=== PATIENT | female | born 2000 | race Caucasian/White ===

== ENCOUNTER 2021-07-18 23:05 | Observation (INO) | payer OTHER ==
[2021-07-18] MEDS ORDERED: Magnesium 2 GM/50 ML BAG (IN WATER) ONE (23:20)
[2021-07-18] MEDS ORDERED: Albuterol Sulfate 2.5 mg/0.5 ml Neb ONE (23:22)
[2021-07-18] MEDS ORDERED: Dexamethasone 10 MG/ML VIAL ONE (23:27)
[2021-07-18 23:35] LABS: #Neutrophils 4.6 10x3/uL (1.5-8.4); %Basophils 0.2 % (0.0-2.0); %Lymphocytes 32.6 % (18.0-47.0); %Monocytes 12.2 % (0.0-10.0); %Neutrophils 53.8 % (40.0-75.0); Hemoglobin 12.2 g/dL (12.0-15.5); Mean Corpuscular Hemoglobin 29.3 pg (27.0-33.0); Mean Corpuscular Volume 88.9 fl (81.6-98.3); Mean Platelet Volume 9.9 fl (7.4-10.4); Platelet Count 321 10x3/uL (150-450); Red Blood Cell (RBC) Count 4.16 10x6/uL (3.90-5.03); White Blood Cell (WBC) Count 8.5 10x3/uL (3.5-10.5)
[2021-07-18 23:49] LABS: ALT (SGPT) 20 U/L (8-55); AST (SGOT) 18 U/L (5-34); Albumin 3.7 g/dL (3.5-5.0); Alkaline Phosphatase 39 U/L (40-110); Anion Gap 11 mmol/L (10-20); BUN (Urea Nitrogen) 13 mg/dL (7.0-18.7); Bilirubin, Total 0.2 mg/dL (0.2-1.2); Calc. Creatinine Clearance 0 mL/min (70-130); Calcium 8.3 mg/dL (7.8-10.44); Carbon Dioxide 19 mmol/L (22-29); Chloride 110 mmol/L (98-107); Globulin 2.4 g/dL (2.4-3.5); Glucose 91 mg/dL (70-105); Magnesium 4.7 mg/dL (1.6-2.6); Potassium 3.2 mmol/L (3.5-5.1); Protein, Total 6.1 g/dL (6.0-8.3); Sodium 137 mmol/L (136-145)
[2021-07-19] MEDS ORDERED: Ondansetron PF 4 MG/2 ML Vial ONE ×2 (00:13→00:17)
[2021-07-19] MEDS ORDERED: Magnesium 2 GM/50 ML BAG (IN WATER) ONE (00:49)
[2021-07-19] MEDS ORDERED: Ketamine 50 MG/ML (10ML VIAL) ONE (01:10)
[2021-07-19] MEDS ORDERED: Guaifenesin DM 100-10/5 ML UDCUP PO PRN (01:22)
[2021-07-19] MEDS ORDERED: Calcium Carbonate 500 MG ChewTAB PO PRN (01:22)
[2021-07-19] MEDS ORDERED: Senokot S 8.6-50 MG TAB PO PRN (01:22)
[2021-07-19] MEDS ORDERED: Ondansetron PF 4 MG/2 ML Vial IVP PRN (01:22)
[2021-07-19] MEDS ORDERED: Zolpidem Tartrate 5 MG TAB PO PRN (01:22)
[2021-07-19] MEDS ORDERED: Acetaminophen 325 MG TAB PO PRN (01:22)
[2021-07-19 01:58] LABS: SARS-CoV-2 NAA Rapid Test Not Detected (NotDetected)
[2021-07-19 03:49] VITALS: BMI 19.5
[2021-07-19] MEDS ORDERED: Potassium Chloride 20 MEQ TAB PO SCH (05:30)
[2021-07-19] MEDS ORDERED: methylPREDNISolone Sod Succ/PF 125 MG/2 ML VIAL IVP SCH (06:00)
[2021-07-19] MEDS ORDERED: Mometasone/Formoterol 200/5 60 PUFF INH SCH ×3 (06:30→18:30)
[2021-07-19] MEDS ORDERED: Famotidine 20 MG TAB PO SCH (09:00)
[2021-07-19] MEDS ORDERED: Loratadine 10 MG TAB PO SCH (09:00)
[2021-07-19] MEDS ORDERED: Enoxaparin Sodium 40 MG/0.4 ML SYRINGE SC SCH (09:00)
[2021-07-19 10:23] LABS: Anion Gap 15 mmol/L (10-20); BUN (Urea Nitrogen) 7 mg/dL (7.0-18.7); Calc. Creatinine Clearance 91 mL/min (70-130); Calcium 8.8 mg/dL (7.8-10.44); Carbon Dioxide 18 mmol/L (22-29); Chloride 109 mmol/L (98-107); Glucose 164 mg/dL (70-105); Potassium 4.3 mmol/L (3.5-5.1); Sodium 138 mmol/L (136-145)
[2021-07-19 12:25] VITALS: BP 109/62; TEMP 97.4
== END 2021-07-19 14:30 | disposition home or self-care (01) ==
LOC: CSHERS 23:05 → CSHTELE 07-19 02:48
PROVIDERS: ADMIT Student in an Organized Health Care Education/Training Program; ATTEND Emergency Medicine
DX: J45.901 Unspecified asthma with (acute) exacerbation (principal); R65.10 Systemic inflammatory response syndrome (SIRS) of non-infectious origin without acute organ dysfunction; E87.6 Hypokalemia; Z20.822 Contact with and (suspected) exposure to COVID-19
CPT/HCPCS: 36415; 71045; 80048; 80053; 83735; 85025; 94640; 94644; 96365; 96367; 96372; 96375; 96376; G0378; J1100; J1650; J2405; J2930; J3475; J7611; J7620

== ENCOUNTER 2021-08-08 22:38 | Emergency (ER) | payer OTHER ==
[2021-08-08] MEDS ORDERED: methylPREDNISolone Sod Succ/PF 125 MG/2 ML VIAL ONE (22:57)
[2021-08-08] MEDS ORDERED: Magnesium 2 GM/50 ML BAG (IN WATER) ONE (22:58)
[2021-08-09 00:20] LABS: #Monocytes 1.1 10x3/uL (0.0-1.1); %Basophils 0.2 % (0.0-2.0); %Lymphocytes 18.6 % (18.0-47.0); %Monocytes 6.8 % (0.0-10.0); %Neutrophils 73.7 % (40.0-75.0); Hemoglobin 13.1 g/dL (12.0-15.5); Mean Corpuscular HGB CONC 33.3 g/dL (32.0-36.0); Mean Corpuscular Hemoglobin 29.3 pg (27.0-33.0); Mean Corpuscular Volume 87.9 fl (81.6-98.3); Mean Platelet Volume 10.5 fl (7.4-10.4); Platelet Count 382 10x3/uL (150-450); RBC Distribution Width 12.5 % (11.5-14.5); Red Blood Cell (RBC) Count 4.47 10x6/uL (3.90-5.03); White Blood Cell (WBC) Count 16.3 10x3/uL (3.5-10.5)
[2021-08-09 00:30] LABS: ALT (SGPT) 24 U/L (8-55); AST (SGOT) 19 U/L (5-34); Alkaline Phosphatase 39 U/L (40-110); Anion Gap 15 mmol/L (10-20); BUN (Urea Nitrogen) 14 mg/dL (7.0-18.7); Bilirubin, Total 0.1 mg/dL (0.2-1.2); Calc. Creatinine Clearance 0 mL/min (70-130); Carbon Dioxide 19 mmol/L (22-29); Chloride 106 mmol/L (98-107); Globulin 2.7 g/dL (2.4-3.5); Glucose 101 mg/dL (70-105); Potassium 3.3 mmol/L (3.5-5.1); Protein, Total 6.7 g/dL (6.0-8.3); Sodium 137 mmol/L (136-145)
== END 2021-08-09 01:34 | disposition home or self-care (01) ==
LOC: CSHERS 22:38
DX: J45.901 Unspecified asthma with (acute) exacerbation (principal); Z79.51 Long term (current) use of inhaled steroids
CPT/HCPCS: 71045; 80053; 85025; 94640; 94760; 96365; 96375; J2930; J3475; J7620